=== PATIENT | female | born 1950 | race African-American/Black ===

== ENCOUNTER → 2018-07-21 10:52 | Outpatient (CLI) | payer MEDICARE, SELFPAY ==
[2018-07-20 14:50] VITALS: BMI 14.6
[2018-07-21 13:00] LABS: Erythrocyte Sedimentation Rate 13 mm/hr (0-30)
[2018-07-21 13:20] LABS: Alkaline Phosphatase 52 U/L (45-117)
== END ==
PROVIDERS: Family Provider Family Medicine Geriatric Medicine; PCP Family Medicine; Visit Provider Family Medicine
DX: M19.90 Unspecified osteoarthritis, unspecified site (principal); M89.8X9 Other specified disorders of bone, unspecified site
CPT/HCPCS: 36415; 84075; 85652

== ENCOUNTER → 2018-08-25 12:51 | Outpatient (CLI) | payer MEDICARE, MEDICAID, SELFPAY ==
[2018-08-16 14:25] VITALS: BMI 14.6
--- NOTE | 2018-08-25 13:02 | MRI_ITS ---
STUDY: MRI LUMBAR SPINE WITHOUT CONTRAST REASON FOR EXAM: Female, 68 years old. Low back pain and radiculopathy TECHNIQUE: Standardized fat and water weighted pulse sequences were obtained in the sagittal and axial planes. COMPARISON: Lumbosacral x-ray 09/27/2012 FINDINGS: T12-L1: Normal endplates. Normal disc height, hydration and morphology. Normal bilateral facet joints. Normal central canal and bilateral lateral recesses. Normal bilateral intervertebral neural foramina. There is straightening of the normal lumbar lordosis. There is a dextroscoliosis of the lumbar spine. Normal conus medullaris that terminates at the L1-L2 level L1-2: Normal endplates. Normal disc height, hydration and morphology. Normal bilateral facet joints. Normal central canal and bilateral lateral recesses. Normal bilateral intervertebral neural foramina. L2-3: Normal endplates. There is mild annular disc bulge and mild ligamentum flavum hypertrophy. Normal bilateral facet joints. Normal central canal and bilateral lateral recesses. Normal bilateral intervertebral neural foramina. L3-4: Normal endplates. There is marked annular disc bulge and central disc protrusion. There is ligamentum flavum hypertrophy and mild to moderate bilateral facet arthrosis.. Marked central canal narrowing. Mild right and moderate left foraminal narrowing. L4-5: Normal endplates. Mild annular disc bulge, ligamentum flavum hypertrophy and bilateral facet arthrosis. No central canal narrowing. Mild right foraminal narrowing. L5-S1: Normal endplates. Normal disc height, hydration and morphology. Normal bilateral facet joints. Normal central canal and bilateral lateral recesses. Normal bilateral intervertebral neural foramina. Normal visualized sacral ala. Normal visualized paraspinous soft tissue structures. MRI/Spine Lumbar (Routine) IMPRESSION: There is multilevel degenerative disc disease most prominent at L3-L4 as described above. There is straightening of the lumbar lordosis. Electronically Signed: Christina Richards, at 16:51 EDT Tel , Service support ,
== END ==
PROVIDERS: Family Provider Family Medicine; PCP Family Medicine; Referring Provider Family Medicine; Visit Provider Family Medicine
DX: M48.061 Spinal stenosis, lumbar region without neurogenic claudication (principal)
CPT/HCPCS: 72148

== ENCOUNTER → 2019-10-02 09:04 | Outpatient (CLI) | payer MEDICARE, SELFPAY ==
[2019-10-02 08:48] VITALS: BMI 15.1
[2019-10-02 12:48] LABS: Absolute Lymphocyte Count 0.97 X10^3/uL (0.83-4.51); Absolute Neutrophil Count 2.1 X10^3/uL (2.0-7.7); Basophil# 0.05 X10^3/uL; Basophil% 1.3 % (0-1); Eosinophil# 0.13 X10^3/uL; Eosinophils% 3.4 % (0-5); Hematocrit 40.1 % (37-47); Hemoglobin 12.3 g/dL (12.0-15.0); Lymphocyte # 0.97 X10^3/ul (4.0); Lymphocyte % 25.1 % (19-41); Mean Corp Hgb Conc 30.7 g/dL (32-36); Mean Corpuscular Hgb 31.1 pg (27.0-32.0); Mean Corpuscular Volume 101.5 fL (81-99); Mean Platelet Vol. 11.8 fl (6.2-12.0); Monocyte# 0.56 X10^3/uL; Monocyte% 14.5 % (0-10); NRBC Flagged by Analyzer 0 % (0-5); Neutrophil # 2.14 X10^3/uL (2.7-7.7); Neutrophil % 55.4 % (47-70); Platelet Count 321 K/mm3 (150-450); RBC Distribution Width CV 13.4 % (11.6-14.6); RBC Distribution Width SD 50.2 fl (35.1-43.9); Red Blood Count 3.95 M/mm3 (4.2-5.4); White Blood Count 3.9 K/mm3 (4.4-11.0)
[2019-10-02 13:06] LABS: AST(SGOT) 18 U/L (15-37); Alanine Aminotransfer ALT/SGPT 20 U/L (13-56); Albumin, Serum 3.8 g/dL (3.2-5.0); Alkaline Phosphatase 61 U/L (45-117); Anion Gap 5 (5-15); BUN 15 mg/dL (7-18); BUN/Creat Ratio 18.1 RATIO (10-20); Calcium,Total 9.4 mg/dL (8.5-10.1); Chloride 109 mmol/L (98-107); Cholesterol 215 mg/dL (200); Creatinine, Serum 0.83 mg/dL (0.55-1.02); EST Glomerular Filtration Rate 73 mL/min (>60); Est Glom Filt Rate - Afr Amer 88 mL/min (>60); Glucose 86 mg/dL (74-106); High Density Lipoprotein 88 mg/dL; Potassium 3.7 mmol/L (3.5-5.1); Protein, Total 7.8 g/dL (6.4-8.2); Sodium Level 141 mmol/L (136-145); Triglycerides 54 mg/dL; Very Low Density Lipoprotein 11 mg/dL (5-40)
== END ==
PROVIDERS: PCP Family Medicine; Referring Provider Internal Medicine; Visit Provider Internal Medicine
DX: I10 Essential (primary) hypertension (principal)
CPT/HCPCS: 36415; 80053; 80061; 85025

== ENCOUNTER 2020-09-11 22:20 | Emergency (ER) | payer MEDICARE, MEDICAID, SELFPAY ==
[2020-09-10 15:28] VITALS: BMI 15.1
[2020-09-11 22:21] VITALS: BP 157/81; PULSE 60; RESP 16; TEMP 36.2; O2SAT 98; BMI 13.4
--- NOTE | 2020-09-11 22:39 | US_ITS ---
HISTORY: ABD PAIN TECHNIQUE: Joy scale and color doppler imaging was performed of the pancreas, liver, and gallbladder. COMPARISON: None FINDINGS: # of images incl. paperwork: 132 LIVER: --Echotexture: There is normal echotexture. --Parenchyma: No focal lesions.. No intrahepatic biliary ductal dilation Liver Measures 13 cm. CBD: 2 mm GALLBLADDER: wall 1.4 mm. No stones or sludge .No sonographic Jensen's sign PANCREAS: Imaged portion shows no acute abnormality. RIGHT KIDNEY: 8.7 cm. Mild prominence of the renal pelvis and calyces. IVC: Not abnomally dilated in the imaged portion Aorta: Not well demonstrated. Ascites: None. US/Gallbladder IMPRESSION: Mild right hydronephrosis without demonstration of etiology. Obstructing distal calculus or other lesion not excluded. - at 2354 Reported and signed by: Jordan Collier MD Electronically Signed: Jordan Collier MD at 23:52 EDT Tel , Service support ,
--- NOTE | 2020-09-11 22:40 | EX.ED.DYSGE1 ---
HPI History of Present Illness Chief Complaint: Abd Pain Narrative Narrative: supper. She complains of nausea and vomiting as well. Denies constipation or diarrhea.70-year-old female presenting with epigastric and right upper quadrant pain. This started earlier this evening after she was eating a a sub. She states that after a couple of bites she started having pain and nausea. She denies a fever. She was otherwise well prior to this. She denies surgical history in her abdomen. [facility] Medical History History of breast cancer Osteoporosis Seasonal allergies Home Medications science anti-aging formula PO 07/20/18 [History Last Taken Unknown] ketoconazole 2 % topical cream TOPICAL 03/20/19 [History Last Taken Unknown] ibuprofen 600 mg tablet See Rx Instructions .ROUTE .COMPLEX #90 tab 09/12/19 [Rx Last Taken Unknown] bone health 1 tab PO DAILY 10/02/19 [History Last Taken Unknown] food supplemt, lactose-reduced 1 ea PO DAILY 90 Days #5688 ml 10/26/19 [Rx Last Taken Unknown] lidocaine 5 % topical patch 1 patch TOPICAL DAILY #30 ea 04/09/20 [Rx Last Taken Unknown] oxybutynin chloride 15 mg tablet,extended release 24 hr 15 mg PO DAILY #90 tab 04/09/20 [Rx Last Taken Unknown] Allergy/AdvReac Type Severity Reaction Status Date / Time codeine Allergy Severe Hives Verified 09/11/20 22:23 Penicillins Allergy Severe Hives Verified 09/11/20 22:23 acetaminophen [From Vicodin] Allergy Intermediate Hives Verified 09/11/20 22:23 hydrocodone [From Vicodin] Allergy Intermediate Hives Verified 09/11/20 22:23 Family History Other Cancer Diabetes Heart disease Hyperlipemia Kidney disease Thyroid disorder Surgical History History of breast biopsy History of breast reconstruction History of left mastectomy Social History Smoking Status: Never smoker alcohol intake: never substance use type: does not use ROS ROS ED Constitutional Constitutional ED: Denies chills, fever(s) or sweats Eyes Eyes: Denies blurry vision or change in vision ENT ENT ED: Denies ear pain, rhinorrhea or sore throat Cardiovascular Cardiovascular: Denies chest pain, palpitations or racing heartbeat Respiratory/Chest Respiratory/Chest: Denies cough, dyspnea or sputum Gastrointestinal Gastrointestinal: Reports abdominal pain, nausea and vomiting; Denies constipation or diarrhea Genitourinary Genitourinary ED: Denies dysuria, hematuria or urinary frequency Musculoskeletal Musculoskeletal: Denies arthralgias, myalgias or neck pain Integumentary Denies abscess, Abrasions or rash Neurologic Neurologic: Denies headache(s), paresthesias or weakness Psychiatric Psychiatric: Denies anxiety, depression, suicidal ideation or suicidal thoughts Endocrine Endocrinology: Denies polydipsia or polyuria EXAM Physical Exam Const Vital Signs: 09/11/20 22:21 Temperature 97.2 F L Temperature Source Temporal Pulse Rate 60 Respiratory Rate 16 Blood Pressure 157/81 H Blood Pressure Mean 106 Pulse Ox 98 Oxygen Delivery Method Room Air Positive well nourished General Appearance ED: NAD; Negative for pallor HEENT Reports normocephalic, head/scalp atraumatic and moist mucous membranes Negative for trauma Eyes PERRL and EOMs intact bilaterally General Eye ED: Negative for pale conjunctiva or scleral icterus Neck no lymphadenopathy and supple Chest Wall inspection of chest normal and palpation of chest normal Resp Auscultation: Negative for rales, rhonchi or wheezes Cardio regular rate and regular rhythm GI GI Narrative: Tenderness to palpation in the epigastrium and right upper quadrant. Narrative: Deferred Extremity normal to inspection General Extremety ED: Yes edema and tenderness General Extremity: edema Neuro oriented x3 and CN's II-XII intact bilaterally Sensorium / Orientation: alert Motor Exam: strength 5/5 throughout Psych mental status grossly normal Attitude: No agitated Skin no rashes or lesions noted and no wounds General Skin Exam: Negative for jaundice or pallor MDM MDM MDM Narrative Medical decision making narrative: Patient seen and evaluated for abdominal pain. Initially she had right upper quadrant and epigastric pain. I obtained lab work and a right upper quadrant ultrasound which showed the gallbladder was normal. On reevaluation she started saying that her abdominal pain had moved to her lower abdomen around her right lower quadrant and umbilicus. I obtained a urinalysis which showed that she had blood in her urine. Otherwise her lab work is normal. For this reason I obtained a CT abdomen pelvis without contrast looking for kidney stone however none was found. She does has isolated hydronephrosis but this is no longer where her pain is. CT does identify a very large amount of stool. Patient states that she had a bowel movement earlier today and even had 1 in the emergency room. I think this is likely the cause of her pain. I gave her magnesium citrate to take home. I counseled her to take one half bottle and if she does not have a bowel movement for hours to take the other half. Patient was amenable to this plan. Impression: 1. Abdominal pain 2. Hematuria 3. Constipation Lab Data Labs: Laboratory Results - last 24 hr 09/11/20 09/11/20 09/12/20 22:46 22:46 00:20 WBC 5.2 RBC 4.04 L Hgb 12.4 Hct 38.9 MCV 96.3 MCH 30.7 MCHC 31.9 L RDW Std Deviation 46.7 H RDW Coeff of Nancy 13.1 Plt Count 301 MPV 10.0 Immature Gran % (Auto) 1.000 H Neut % (Auto) 72.2 H Lymph % (Auto) 17.2 L Turner % (Auto) 8.0 Eos % (Auto) 0.6 Baso % (Auto) 1.0 Absolute Neuts (auto) 3.8 Absolute Lymphs (auto) 0.90 Nucleated RBC % 0 Sodium 140 Potassium 3.7 Chloride 105 Carbon Dioxide 29.0 Anion Gap 6 BUN 14 Creatinine 0.90 Estim Creat Clear Calc 33.41 Est GFR (MDRD) Af Amer 79 Est GFR (MDRD) Non-Af 66 BUN/Creatinine Ratio 15.5 Glucose 189 H Calcium 9.4 Total Bilirubin 0.70 AST 15 ALT 16 Alkaline Phosphatase 71 Total Protein 7.6 Albumin 3.9 Globulin 3.7 Albumin/Globulin Ratio 1.1 Lipase 149 Urine Color Yellow Urine Clarity Clear Urine pH 8.0 Ur Specific [place] 1.015 Urine Protein 15 H Urine Glucose (UA) 100 H Urine Ketones Negative Urine Occult Blood 50 H Urine Nitrite Negative Urine Bilirubin Negative Urine Urobilinogen Normal Ur Leukocyte Esterase Negative Urine RBC 0-5 SEEN Urine WBC 0 SEEN Ur Squamous Epith Cells 0 SEEN Amorphous Sediment RARE Urine Bacteria RARE Urine Mucus 0 SEEN Radiography Diagnostic Testing: Radiology Impression Gallbladder Ultrasound 09/11/20 22:39 IMPRESSION: Mild right hydronephrosis without demonstration of etiology. Obstructing distal calculus or other lesion not excluded. - at 2354 Reported and signed by: Jordan Collier MD Electronically Signed: Jordan Collier MD at 23:52 EDT Tel , Service support , Abdomen/Pelvis CT 09/12/20 00:28 IMPRESSION: 1. Large amount of stool suggesting constipation and fecal stasis. 2. Mild right-sided hydronephrosis without obvious hydroureter or radiopaque ureteral calculus may be the result of recently passed calculus or infection. Electronically Signed: Kristal Hyatt MD at 0:53 EDT , Service support , Discharge Plan Triage Chief Complaint: Abd Pain ED Provider: Jeffrey Snow Dx/Rx/DC Orders Instructions: ED Abdominal Pain Unkn Cause Fem, ED Constipation (Adult) Prescriptions: No Action science anti-aging formula PO RF: 0 ketoconazole 2 % cream TOPICAL RF: 0 bone health 1 tab PO DAILY RF: 0 ibuprofen 600 mg tablet See Rx Instructions .ROUTE .COMPLEX Qty: 90 RF: 2 Ensure High Protein Liquid 1 ea PO DAILY 90 Days Qty: 5688 RF: 3 lidocaine [Lidoderm] 5 % adhesive patch,medicated 1 patch TOPICAL DAILY Qty: 30 RF: 1 oxybutynin chloride 15 mg tablet extended release 24hr 15 mg PO DAILY Qty: 90 RF: 1 Primary Care Provider: El Zheng Referrals: El Zheng, DO [Primary Care Provider] - Disposition Disposition: Home, self care
[2020-09-11] MEDS: 0.9% Normal Saline 1,000 ML 1000 ML IV (22:55)
[2020-09-11] MEDS: Ondansetron 4 MG/2 ML Vial IV (22:55)
[2020-09-11 23:09] LABS: ALB/GLOB Ratio 1.1 RATIO (0.9-2.4); AST(SGOT) 15 U/L (15-37); Alanine Aminotransfer ALT/SGPT 16 U/L (13-56); Albumin, Serum 3.9 g/dL (3.2-5.0); Alkaline Phosphatase 71 U/L (45-117); Anion Gap 6 (5-15); BUN 14 mg/dL (7-18); BUN/Creat Ratio 15.5 RATIO (10-20); Calcium,Total 9.4 mg/dL (8.5-10.1); Chloride 105 mmol/L (98-107); EST Glomerular Filtration Rate 66 mL/min (>60); Est Glom Filt Rate - Afr Amer 79 mL/min (>60); Estimated Creatinine Clearance 33.41 ml/min; Globulin 3.7 g/dL (2.2-4.2); Glucose 189 mg/dL (74-106); Lipase 149 U/L (73-393); Potassium 3.7 mmol/L (3.5-5.1); Protein, Total 7.6 g/dL (6.4-8.2); Sodium Level 140 mmol/L (136-145)
[2020-09-11 23:11] LABS: Absolute Neutrophil Count 3.8 X10^3/uL (2.0-7.7); Basophil# 0.05 X10^3/uL; Eosinophil# 0.03 X10^3/uL; Eosinophils% 0.6 % (0-5); Hematocrit 38.9 % (37-47); Hemoglobin 12.4 g/dL (12.0-15.0); Lymphocyte % 17.2 % (19-41); Mean Corp Hgb Conc 31.9 g/dL (32-36); Mean Corpuscular Hgb 30.7 pg (27.0-32.0); Mean Corpuscular Volume 96.3 fL (81-99); Monocyte# 0.42 X10^3/uL; NRBC Flagged by Analyzer 0 % (0-5); Neutrophil # 3.78 X10^3/uL (2.7-7.7); Neutrophil % 72.2 % (47-70); Platelet Count 301 K/mm3 (150-450); RBC Distribution Width CV 13.1 % (11.6-14.6); RBC Distribution Width SD 46.7 fl (35.1-43.9); Red Blood Count 4.04 M/mm3 (4.2-5.4); White Blood Count 5.2 K/mm3 (4.4-11.0)
[2020-09-12 00:24] LABS: Mucous, Urine 0 SEEN /hpf (<or=2+); Squamous Epithelial Cells - UA 0 SEEN /hpf (5-10); White Blood Cells 0 SEEN /hpf (0-5)
[2020-09-12 00:25] LABS: Color, Urine Yellow (Yellow); Glucose, Dipstick 100 mg/dl (Normal); Ketone-Dipstick Negative (Negative); Leukocyte Esterase-Dipstick Negative /ul (Negative); Nitrite-Dipstick Negative (Negative); Occult Blood-Urine 50 /ul (Negative); Protein-Dipstick 15 mg/dl (Negative); Specific Gravity, Urine 1.015 (1.002-1.030); Urine Bilirubin Dipstick Negative (Negative); Urine Clarity Clear (Clear); Urine Urobilinogen Normal (Normal)
--- NOTE | 2020-09-12 00:28 | CT_ITS ---
STUDY: CT ABDOMEN AND PELVIS WITHOUT CONTRAST REASON FOR EXAM: Female, 70 years old patient with right-sided flank pain. RADIATION DOSAGE (If Supplied By Facility): CTDIvol = ( 6.04 ) mGy, DLP = ( 240.06 ) mGycm TECHNIQUE: Transaxial images were obtained from the dome of the diaphragm to the symphysis pubis without oral contrast, and without intravenous contrast. Sagittal and coronal images were reconstructed. Individualized dose optimization techniques were used for this CT. COMPARISON: Prior comparison studies are not available for review at this time. FINDINGS: The visualized lung bases are unremarkable. The visualized portions of the heart are within normal limits. Normal liver. Normal gallbladder and extrahepatic biliary system. Normal spleen. Normal pancreas. Normal bilateral adrenal glands. There is mild right-sided hydronephrosis without obvious hydroureter or radiopaque ureteral calculus. This may be secondary to recently passed ureteral calculus, urinary tract infections or radiolucent calculus. Normal left kidney. Normal visualized stomach. Normal small intestine. There is a large amount of stool visible throughout the colon suggesting fecal stasis and constipation. The appendix is visualized and appears normal. There is mild atherosclerotic calcification of the abdominal aorta with elongation and tortuosity, but without a demonstrated aneurysm. There is venous distention of the inferior vena cava (IVC). Normal retroperitoneum. Normal urinary bladder. Normal abdominal wall. Normal osseous structures. CT/Abdomen/Pelvis without Cont IMPRESSION: 1. Large amount of stool suggesting constipation and fecal stasis. 2. Mild right-sided hydronephrosis without obvious hydroureter or radiopaque ureteral calculus may be the result of recently passed calculus or infection. Electronically Signed: Kristal Hyatt MD at 0:53 EDT , Service support ,
[2020-09-12 00:31] LABS: Bacteria RARE /hpf (None Seen); Red Blood Cells-Urine 0-5 SEEN /hpf (0-5)
[2020-09-12 00:32] LABS: Amorphous Sediment RARE
[2020-09-12] MEDS: Morphine 2 MG/ML Syringe IV (00:45)
[2020-09-12] MEDS: Magnesium Citrate 300 ML PO (01:06)
== END 2020-09-12 01:07 | disposition home or self-care (01) ==
PROVIDERS: Emergency Provider Student in an Organized Health Care Education/Training Program; PCP Family Medicine
DX: R10.11 Right upper quadrant pain (principal); R10.13 Epigastric pain; N13.30 Unspecified hydronephrosis; R31.9 Hematuria, unspecified; K59.00 Constipation, unspecified; M81.0 Age-related osteoporosis without current pathological fracture; Z79.1 Long term (current) use of non-steroidal anti-inflammatories (NSAID); Z85.3 Personal history of malignant neoplasm of breast; Z90.12 Acquired absence of left breast and nipple
CPT/HCPCS: 74176; 76705; 80053; 81001; 83690; 85025; 96361; 96374; 96375; 99282; J7030; A4216; J2405

== ENCOUNTER → 2020-10-02 15:31 | Outpatient (CLI) | payer MEDICARE, SELFPAY ==
[2020-09-16 13:22] VITALS: BMI 13.4
--- NOTE | 2020-10-02 15:33 | BI_ITS ---
MAMMOGRAPHY - UNILATERAL SCREENING: RIGHT BREAST REASON FOR EXAM: Female, 70 years old. Routine annual screening examination (unilateral). PERTINENT HISTORY: Personal history of breast cancer. Prior left mastectomy. TECHNIQUE: Digital unilateral breast kath (3D mammographic acquisition) in the CC and MLO projections. 2-D mediolateral oblique (MLO) and craniocaudad (CC) views of both breasts were obtained. CAD: Full Field Digital Mammography with Computer Added Detection was performed. COMPARISON: Comparison is made with prior outside examination dated 10/17/2019. FINDINGS: Breast Composition: The breasts are extremely dense, which lowers the sensitivity of mammography. There are no dominant masses or suspicious calcifications. No other significant abnormalities are identified. There has been no significant change since the prior study. BI/SCREEN MAMM (CAD) W/KATH UNI R IMPRESSION: Stable unilateral screening mammogram. Yearly follow-up mammogram recommended. (A) ASSESSMENT CATEGORY: BIRADS Category 1: Negative. A letter regarding these results will be sent to the patient by the facility within 30 days. Approximately 10% of breast cancers are not detected by mammography. A normal mammogram should not delay biopsy of a clinically suspicious abnormality. [id number] Electronically Signed: Noel Stovall MD at 8:09 EDT , Service support ,
== END ==
PROVIDERS: PCP Family Medicine; Referring Provider Family Medicine; Visit Provider Family Medicine
DX: Z12.31 Encounter for screening mammogram for malignant neoplasm of breast (principal)
CPT/HCPCS: 77063; 77067

== ENCOUNTER → 2020-11-07 13:36 | Outpatient (CLI) | payer MEDICARE, MEDICAID, SELFPAY ==
[2020-09-16 13:22] VITALS: BMI 13.4
--- NOTE | 2020-11-07 13:40 | CT_ITS ---
STUDY: CT ABDOMEN AND PELVIS WITH AND WITHOUT CONTRAST REASON FOR EXAM: Female, 70 years old. HYDRONEPHROSIS RADIATION DOSAGE (If Supplied By Facility): CTDIvol = ( 6.55 ) mGy, DLP = ( 803.40 ) mGycm TECHNIQUE: Transaxial images were obtained from the dome of the diaphragm to the symphysis pubis without oral contrast. IV 75ML ISOVUE 370 was administered. Sagittal and coronal images were reconstructed. Individualized dose optimization techniques were used for this CT. COMPARISON: Comparison is made with prior study dated 09/12/2020. FINDINGS: The visualized lung bases are unremarkable. The visualized portions of the heart are within normal limits. There is decreased attenuation of the liver consistent with steatosis. Normal gallbladder and extrahepatic biliary system. Normal spleen. Normal pancreas. Normal bilateral adrenal glands. Normal right kidney. Normal left kidney. Normal visualized stomach. Normal small intestine. Large amount of fecal material is seen in the colon. The appendix is visualized and appears normal. There is diffuse atherosclerotic calcification of the abdominal aorta, without a demonstrated aneurysm. Normal inferior vena cava. Normal retroperitoneum. Normal urinary bladder. There is absence of the uterus consistent with a prior hysterectomy. Normal abdominal wall. There are degenerative changes of the visualized lumbar spine. Loss of the normal lumbar lordosis. CT/CT Abd/Pelvis W/WO Contrast IMPRESSION: Large amount of fecal material is seen throughout the colon. There is no evidence of hydronephrosis. Electronically Signed: Noel Stovall MD at 15:27 EDT , Service support ,
[2020-11-07 14:05] LABS: EGFR FINGERSTICK > 60.0000 mL/min (>60)
== END ==
PROVIDERS: PCP Family Medicine; Referring Provider Urology; Visit Provider Urology
DX: N13.30 Unspecified hydronephrosis (principal); R10.9 Unspecified abdominal pain
CPT/HCPCS: 74178; Q9967

== ENCOUNTER → 2021-10-09 | Outpatient (CLI) | payer MEDICARE, MEDICAID, SELFPAY | END | disposition home or self-care (01) | LOC: LABSPEC 15:44 | PROVIDERS: PCP Family Medicine; Referring Provider Physician Assistant; Visit Provider Physician Assistant | DX: U07.1 COVID-19 (principal); J02.9 Acute pharyngitis, unspecified | CPT/HCPCS: 87635; U0003; U0005 ==

== ENCOUNTER 2022-01-29 18:11 | Emergency (ER) | payer MEDICARE, MEDICAID, SELFPAY ==
[2022-01-29 18:12] VITALS: BP 148/99; PULSE 86; RESP 14; TEMP 36.8; O2SAT 93; BMI 14.3
--- NOTE | 2022-01-29 19:43 | CT_ITS ---
STUDY: CT BRAIN WITHOUT CONTRAST REASON FOR EXAM: Female, 72 years old. Hit head on back of a couple of days ago. It feels like its trickling. I think blood is running on the inside of my brain RADIATION DOSAGE (If Supplied By Facility): CTDIvol = ( 44.99 ) mGy, DLP = ( 745.49 ) mGycm TECHNIQUE: Transaxial CT imaging of the brain was performed without administration of intravenous contrast material. Individualized dose optimization techniques were used for this CT. COMPARISON: No relevant priors. FINDINGS: Normal soft tissue structures. Normal calvarium. Normal size ventricles and extra-axial spaces for the patient''s age. Normal white matter tracts of the cerebral hemispheres. For Normal brainstem. Normal cerebellum. There is no intracranial hemorrhage. There are no findings of an acute ischemic infarction. Normal visualized paranasal sinuses. CT/Brain/Head without Contrast IMPRESSION: No acute intracranial or calvarial abnormality. Electronically Signed: Dillan Hernandez DO at 20:15 EDT ,
--- NOTE | 2022-01-29 19:43 | EDS_ITS ---
HPI History of Present Illness Chief Complaint: Head Injury Detail of Chief Complaint: Head injury Informant: patient Narrative Narrative: Patient presents the emergency department after head injury. Patient states that yesterday she was cleaning her tub when she bumped her head on the tub. No loss of consciousness. Patient last evening started feeling like there was blood dripping on the inside of her brain. Patient states that symptoms kind of resolved but then today when she bent over she had the same sensation again and so she comes in for evaluation. She denies nausea or vomiting. She is not on any blood thinners. Otherwise has not been ill. [facility] Medical History (Updated 01/29/22 @ 21:[address] Emily Tobias, DO) History of breast cancer Osteoporosis Seasonal allergies Home Medications science anti-aging formula PO 07/20/18 [History Last Taken Unknown] bone health 1 tab PO DAILY 10/02/19 [History Last Taken Unknown] food supplemt, lactose-reduced (Ensure High Protein oral liquid) 1 ea PO DAILY 3 months #5,688 mL 10/26/19 [Rx Last Taken Unknown] ketoconazole 2 % topical cream 1 applic topical DAILY #60 grams 07/24/21 [Rx Last Taken Unknown] lidocaine 5 % topical patch (Lidoderm) 1 patch topical DAILY #90 ea 07/24/21 [Rx Last Taken Unknown] benzonatate 100 mg capsule 100 mg PO TID PRN cough #30 caps 10/09/21 [Rx Last Taken Unknown] ibuprofen 600 mg tablet 600 mg PO Q6H #90 tabs 10/09/21 [Rx Last Taken Unknown] oxybutynin chloride 15 mg tablet,extended release 24 hr 15 mg PO DAILY #90 tabs 10/09/21 [Rx Last Taken Unknown] oxybutynin chloride 5 mg tablet,extended release 24 hr 5 mg PO DAILY #90 tabs 10/09/21 [Rx Last Taken Unknown] Allergy/AdvReac Type Severity Reaction Status Date / Time codeine Allergy Severe Hives Verified 01/29/22 18:12 Penicillins Allergy Severe Hives Verified 01/29/22 18:12 acetaminophen [From Vicodin] Allergy Intermediate Hives Verified 01/29/22 18:12 hydrocodone [From Vicodin] Allergy Intermediate Hives Verified 01/29/22 18:12 Family History Other Cancer Diabetes Heart disease Hyperlipemia Kidney disease Thyroid disorder Surgical History History of breast biopsy History of breast reconstruction History of left mastectomy Social History Smoking Status: Never smoker alcohol intake: never substance use type: does not use ROS ROS ED Review of Systems ROS Unobtainable: other Constitutional Constitutional ED: Reports lethargy; Denies chills, fever(s), sweats or weight loss Eyes Eyes: Denies blurry vision, change in vision or diplopia ENT ENT ED: Denies rhinorrhea or sore throat Cardiovascular Cardiovascular: Denies chest pain, orthopnea or racing heartbeat Respiratory/Chest Respiratory/Chest: Denies cough, dyspnea, dyspnea on exertion, orthopnea or sputum Gastrointestinal Gastrointestinal: Denies abdominal pain, diarrhea, nausea or vomiting Genitourinary Genitourinary ED: Denies dysuria, hematuria or urinary frequency Musculoskeletal Musculoskeletal: Denies arthralgias, back pain, myalgias or neck pain Integumentary Denies abscess, Abrasions or rash Neurologic Neurologic: Denies headache(s) or weakness Psychiatric Psychiatric: Denies anxiety, depression or suicidal thoughts Endocrine Endocrinology: Denies polydipsia, polyphagia or polyuria Hematologic/Lymphatic Hematologic/Lymphatic: Denies easy bleeding, easy bruising or lymphadenopathy Allergic/Immunologic Allergic/Immunologic ED: Denies mouth swelling, tongue swelling or urticaria EXAM Physical Exam Const Vital Signs: 01/29/22 18:12 01/29/22 19:38 Temperature 98.2 F Temperature Source Temporal Pulse Rate 86 Respiratory Rate 14 Respiratory Effort Normal Non-Labored Respiratory Depth Normal Respiratory Pattern Normal Blood Pressure 148/99 H Blood Pressure Mean 115 Pulse Ox 93 Oxygen Delivery Method Room Air Room Air Positive well nourished and well developed General Appearance ED: well developed and NAD HEENT Reports TM's clear and moist mucous membranes normocephalic and atraumatic; Negative for trauma or tenderness Tympanic Membrane ED: Yes TM's clear Eyes PERRL and EOMs intact bilaterally General Eye ED: Negative for pale conjunctiva or scleral icterus Neck no lymphadenopathy, supple and no JVD General: Negative for tenderness Chest Wall inspection of chest normal and palpation of chest normal Chest: Negative for tenderness Resp normal respiratory effort and clear to auscultation bilaterally Effort and Inspection: Negative for respiratory distress or pain with movement Auscultation: Negative for rhonchi, wheezes or diminished lung sounds Cardio regular rate, regular rhythm, S1 normal heart sound, S2 normal heart sound and no murmurs Peripheral Pulses: pulses 2+ throughout GI normal to inspection, nondistended, normoactive bowel sounds, soft to palpation, non-tender, non-distended and no masses Back/Spine no CVA tenderness and no thoracic nor lumbar tenderness Extremity normal to inspection General Extremety ED: Negative for edema General Extremity: Negative for edema Neuro oriented x3, CN's II-XII intact bilaterally, no sensory deficits noted and gait normal Sensorium / Orientation: awake, alert, oriented to person, oriented to place and oriented to time Motor Exam: strength 5/5 throughout and strength abnormal Psych mental status grossly normal Skin no rashes or lesions noted and no wounds MDM MDM MDM Narrative Medical decision making narrative: CT scan of the brain without contrast obtained was normal. At this point patient will be discharged to home. She is advised to use Tylenol for any discomfort. She is to follow-up with her primary care physician within next 3 to 5 days. Radiography Diagnostic Testing: Clinical Impression(s) from Imaging Studies Brain CT 01/29/22 19:43 IMPRESSION: No acute intracranial or calvarial abnormality. Electronically Signed: Dillan Hernandez DO at 20:15 EDT Reading Location ID and State: [address] [place] [address] Tel [phone], Service support , Discharge Plan Triage Chief Complaint: Head Injury ED Provider: Emily Tobias Dx/Rx/DC Orders Clinical Impression: Closed head injury Instructions: ED Head Injury (Adult) Prescriptions: No Action science anti-aging formula PO bone health 1 tab PO DAILY lidocaine [Lidoderm] 5 % adhesive patch,medicated 1 patch TOPICAL DAILY Qty: 90 1RF Rx Instructions: leave on most painful area for up to 12 hrs ketoconazole 2 % cream 1 applic TOPICAL DAILY Qty: 60 2RF ibuprofen 600 mg tablet 600 mg PO Q6H Qty: 90 2RF oxybutynin chloride 15 mg tablet extended release 24hr 15 mg PO DAILY Qty: 90 1RF oxybutynin chloride 5 mg tablet extended release 24hr 5 mg PO DAILY Qty: 90 1RF benzonatate 100 mg capsule 100 mg PO TID PRN (Reason: cough) Qty: 30 1RF Ensure High Protein Liquid 1 ea PO DAILY 90 Days Qty: 5688 3RF Primary Care Provider: El Zheng Referrals: El Zheng, [Primary Care Provider] - 3-5 Days Disposition Disposition: Home, Self Care
[2022-01-29 21:30] VITALS: BP 135/73; PULSE 79; RESP 18; O2SAT 100
== END 2022-01-29 21:31 | disposition home or self-care (01) ==
PROVIDERS: Emergency Provider Emergency Medicine; PCP Family Medicine; Visit Provider Emergency Medicine
DX: S09.90XA Unspecified injury of head, initial encounter (principal); W22.09XA Striking against other stationary object, initial encounter; Y93.E9 Activity, other interior property and clothing maintenance; Y92.002 Bathroom of unspecified non-institutional (private) residence as the place of occurrence of the external cause
CPT/HCPCS: 70450; 99282

== ENCOUNTER → 2022-02-16 | Outpatient (CLI) | payer MEDICARE, MEDICAID, SELFPAY ==
[2022-02-16 16:00] LABS: Hemoglobin A1c 5.4 % (3.8-5.6)
[2022-02-16 16:04] LABS: Anion Gap 5 (5-15); BUN 15 mg/dL (7-18); BUN/Creat Ratio 17.3 RATIO (10-20); Calcium,Total 9.3 mg/dL (8.5-10.1); Chloride 106 mmol/L (98-107); Creatinine, Serum 0.86 mg/dL (0.55-1.02); EST Glomerular Filtration Rate 69 mL/min (>60); Est Glom Filt Rate - Afr Amer 83 mL/min (>60); Glucose 79 mg/dL (74-106); Potassium 3.5 mmol/L (3.5-5.1); Sodium Level 140 mmol/L (136-145)
== END | disposition home or self-care (01) ==
LOC: BIMLAB 14:26
PROVIDERS: PCP Family Medicine; Referring Provider Family Medicine; Visit Provider Family Medicine
DX: R73.09 Other abnormal glucose (principal)
CPT/HCPCS: 36415; 80048; 83036

== ENCOUNTER → 2022-09-24 | Outpatient (CLI) | payer MEDICARE, MEDICAID, SELFPAY ==
[2022-09-24 12:29] LABS: Absolute Lymphocyte Count 1.14 X10^3/uL (0.83-4.51); Absolute Neutrophil Count 2.5 X10^3/uL (2.0-7.7); Basophil# 0.05 X10^3/uL; Basophil% 1.2 % (0-1); Eosinophil# 0.08 X10^3/uL; Eosinophils% 1.9 % (0-5); Hemoglobin 12.3 g/dL (12.0-15.0); Lymphocyte # 1.14 X10^3/ul (0.83-4.51); Mean Corp Hgb Conc 30.8 g/dL (32-36); Mean Corpuscular Hgb 30.3 pg (27.0-32.0); Mean Corpuscular Volume 98.5 fL (81-99); Monocyte# 0.47 X10^3/uL; Monocyte% 11.1 % (0-10); NRBC Flagged by Analyzer 0 % (0-5); Neutrophil # 2.48 X10^3/uL (2.7-7.7); Neutrophil % 58.6 % (47-70); Platelet Count 333 K/mm3 (150-450); RBC Distribution Width SD 46.6 fl (35.1-43.9); Red Blood Count 4.06 M/mm3 (4.2-5.4); White Blood Count 4.2 K/mm3 (4.4-11.0)
[2022-09-24 13:09] LABS: Vitamin B12 520 pg/mL (211-911); Vitamin D,25 Hydroxy 47.4 ng/mL
[2022-09-24 13:22] LABS: ALB/GLOB Ratio 0.9 RATIO (0.9-2.4); AST(SGOT) 17 U/L (15-37); Alanine Aminotransfer ALT/SGPT 21 U/L (13-56); Albumin, Serum 3.7 g/dL (3.2-5.0); Alkaline Phosphatase 67 U/L (45-117); Anion Gap 7 (5-15); BUN 19 mg/dL (7-18); BUN/Creat Ratio 21.4 RATIO (10-20); Calcium,Total 9.8 mg/dL (8.5-10.1); Chloride 106 mmol/L (98-107); Cholesterol 225 mg/dL (200); Creatinine, Serum 0.89 mg/dL (0.55-1.02); EST Glomerular Filtration Rate 67 mL/min (>60); Est Glom Filt Rate - Afr Amer 81 mL/min (>60); Globulin 3.9 g/dL (2.2-4.2); Glucose 75 mg/dL (74-106); High Density Lipoprotein 97 mg/dL; Potassium 3.8 mmol/L (3.5-5.1); Protein, Total 7.6 g/dL (6.4-8.2); Sodium Level 138 mmol/L (136-145); Thyroid Stim Hormone (TSH) 0.41 uIU/mL (0.358-3.74); Triglycerides 34 mg/dL; Very Low Density Lipoprotein 7 mg/dL (5-40)
== END | disposition home or self-care (01) ==
LOC: BIMLAB 11:01
PROVIDERS: PCP Family Medicine; Referring Provider Internal Medicine; Visit Provider Internal Medicine
DX: R26.89 Other abnormalities of gait and mobility (principal); R29.898 Other symptoms and signs involving the musculoskeletal system; Z13.6 Encounter for screening for cardiovascular disorders; M81.0 Age-related osteoporosis without current pathological fracture; R20.0 Anesthesia of skin; R20.2 Paresthesia of skin
CPT/HCPCS: 36415; 80053; 80061; 82306; 82607; 84443; 85025

== ENCOUNTER 2022-10-28 09:12 | Outpatient (CLI) | payer MEDICARE, MEDICAID, SELFPAY ==
--- NOTE | 2022-10-28 09:15 | BI_ITS ---
MAMMOGRAPHY - UNILATERAL DIAGNOSTIC: Right BREAST REASON FOR EXAM: Female, 72 years old. Personal history of breast cancer. PERTINENT HISTORY: Personal history of breast cancer. Prior left mastectomy. TECHNIQUE: Digital unilateral breast mp (3D mammographic acquisition) in the CC and MLO projections. 2-D mediolateral oblique (MLO) and craniocaudad (CC) views of both breasts were obtained. CAD: Full Field Digital Mammography with Computer Added Detection was performed. COMPARISON: Comparison is made with prior examination dated October 02, 2020. FINDINGS: Breast Composition: The breasts are extremely dense, which lowers the sensitivity of mammography. There are no dominant masses or suspicious calcifications. No other significant abnormalities are identified. There has been no significant change since the prior study. BI/DIAG MAMM W/CAD, UNILAT IMPRESSION: Stable unilateral diagnostic mammogram. One year follow-up mammogram recommended. (A) ASSESSMENT CATEGORY: BIRADS Category 1: Negative. A letter regarding these results will be sent to the patient by the facility within 30 days. Approximately 10% of breast cancers are not detected by mammography. A normal mammogram should not delay biopsy of a clinically suspicious abnormality. Electronically Signed: Noel Stovall MD at 10:33 EDT ,
--- NOTE | 2022-10-28 09:55 | BD_ITS ---
STUDY: DUAL ENERGY X-RAY ABSORPTIOMETRY / DXA REASON FOR EXAM: Female, 72 years old. Osteoporosis TECHNIQUE: Bone Mineral Density (BMD) measurements of lumbar spine and bilateral hips were obtained. COMPARISON: Comparison is made with prior study November 10, 2010. FINDINGS: Lumbar Spine (L1-L4): g/cm2 (0.757) / T-score (-3.6) / Z-score (-1.2) Findings are suggestive of osteoporosis with a high fracture risk. Left Femur Total: g/cm2 (0.561) / T-score (-3.0) / Z-score (-1.9) Left Femoral Neck: g/cm2 (0.443) / T-score (-3.6) / Z-score (-2.1) Right Femur Total: g/cm2 (0.563) / T-score (-3.0) / Z-score (-1.8) Right Femoral Neck: g/cm2 (0.451) / T-score (-3.5) / Z-score (-2.1) The T-Scores on the most recent prior examination were: Lumbar Spine (L1-L4): There has been improvement of bone density since the previous examination. Left Femur Total: which represents a worsening of 12.3%. Right Femur Total: which represents a worsening of 10.0%. BD/Dexa Bone Density Study IMPRESSION: The patient is considered osteoporotic as outlined below according to World Praneeth Organization (WHO) criteria with a high fracture risk. There has been worsening of bone density since the previous examination. Reference Information: The T-score is the number of standard deviations above or below the standard which is normal for young adults at their peak bone mineral density. The World Health Organization (WHO) interprets the T-scores as follows: Above -1 Normal bone density Between -1 and -2.5 Osteopenia Equal to / or below -2.5 Osteoporosis As a practical clinical guideline, osteopenia may be graded as follows: Mild -1 through -1.5 Moderate -1.6 through -2.0 Severe -2.1 through -2.4 The Z-score is the number of standard deviations above or below age-matched controls. A Z-score of less than -1.5 would be considered abnormal. References: 1. NIH Osteoporosis and Related Bone Diseases www osteo.org 2. International Society for Clinical Densitometry www iscd.org 3. National Osteoporosis Foundation www nof.org Electronically Signed: Noel Stovall MD at 13:28 EDT ,
== END 2022-10-28 23:59 | disposition home or self-care (01) ==
LOC: OPBI 09:14
PROVIDERS: PCP Internal Medicine; Referring Provider Internal Medicine; Visit Provider Internal Medicine
DX: Z85.3 Personal history of malignant neoplasm of breast (principal); M81.0 Age-related osteoporosis without current pathological fracture
CPT/HCPCS: 77061; 77065; 77080; G0279

== ENCOUNTER → 2022-12-16 | Outpatient (CLI) | payer MEDICARE, MEDICAID, SELFPAY ==
[2022-12-16 10:30] LABS: Bacteria 0 SEEN /hpf (None Seen); Mucous, Urine 0 SEEN /hpf (<or=2+)
[2022-12-16 12:20] LABS: Color, Urine Yellow (Yellow); Glucose, Dipstick Normal (Normal); Ketone-Dipstick Negative (Negative); Leukocyte Esterase-Dipstick 25 /ul (Negative); Nitrite-Dipstick Negative (Negative); Occult Blood-Urine 25 /ul (Negative); Protein-Dipstick 15 mg/dl (Negative); Specific Gravity, Urine 1.015 (1.002-1.030); Urine Bilirubin Dipstick Negative (Negative); Urine Clarity Clear (Clear); Urine Urobilinogen Normal (Normal)
[2022-12-16 12:34] LABS: Amorphous Sediment 2+; Squamous Epithelial Cells - UA 5-10 SEEN /hpf (5-10); White Blood Cells 5-10 SEEN /hpf (0-5)
[2022-12-16 12:35] LABS: Red Blood Cells-Urine 0-5 SEEN /hpf (0-5)
== END | disposition home or self-care (01) ==
PROVIDERS: PCP Internal Medicine; Referring Provider Internal Medicine; Visit Provider Internal Medicine
DX: Z20.822 Contact with and (suspected) exposure to COVID-19 (principal)
CPT/HCPCS: 81001; 87635

== ENCOUNTER → 2023-02-19 | Outpatient (CLI) | payer MEDICARE, MEDICAID, SELFPAY ==
--- NOTE | 2023-02-19 08:02 | MRI_ITS ---
HISTORY: cognitive decline, memory issues. TECHNIQUE: Multiplanar and multisequence MR images of the brain were obtained without contrast. 274 images. COMPARISON: CT 01/29/2022. FINDINGS: BRAIN PARENCHYMA: Mild foci and small zones of increased T2 FLAIR signal in the bilateral periventricular white matter. No abnormal focus of restricted diffusion. No acute intracranial hemorrhage identified. CSF SPACES: Mild generalized volume loss. No significant midline shift or other mass effect.No extra-axial fluid collection. VASCULAR SYSTEM: Major intracranial flow voids are maintained. PARANASAL SINUSES AND MASTOID AIR CELLS: No significant air fluid levels. ORBITS: Right lens resection. MRI/Brain without Contrast IMPRESSION: Mild chronic involutional and white matter changes. No evidence for acute infarct. Electronically Signed: Morena Gonzalez MD at 11:36 EST ,
== END | disposition home or self-care (01) ==
PROVIDERS: PCP Internal Medicine; Referring Provider Internal Medicine; Visit Provider Internal Medicine
DX: R41.89 Other symptoms and signs involving cognitive functions and awareness (principal)
CPT/HCPCS: 70551

== ENCOUNTER → 2023-03-30 | Outpatient (CLI) | payer MEDICARE, MEDICAID, SELFPAY ==
--- OUTSIDE RECORDS SUMMARY | 2023-03-30 11:36 | XMS RPT_ITS | CCD ---
Author Name Unknown Address [address] [place] [address] Organization [facility] Clinical Note 10-17-2020 Note Date & Type Note Facility 10-17-2020 Note Patient Outreach (IN TMMN) STAS OLIVEIRA ([id number]) 1950 F Date Time Provider Department 10/17/20 CHELSI MA During your visit today, we recorded the following information about you: Allergies As of Date: 10/17/2020 Noted Allergy Reaction CODEINE 09/22/2009 11 - Vomiting PENICILLINS 05/17/2005 4 - Hives 9 - Itching SMOKE 09/23/2011 4 - Hives Comments: Cigarette smoke causes patient to break out and itch VICODIN (HYDROCODONE-ACETAMINOPHE*07/17/2009 4 - Hives 11 - Vomiting Date Reviewed: 10/17/2019 Reviewed by: María Elena Ramirez Ma - Fully Assessed Visit Diagnosis:Encounter for screening mammogram for breast cancer [Z12.31] Order(s):[facility] SCREENING [[id number]] Order #: [id number] FUTURE Prescriptions as of 10/20/2020 - ibuprofen (MOTRIN) 600 mg tablet Take 1 tablet by mouth every 6 hours as needed. FOR PAIN. - lidocaine (LIDODERM) 5 % Apply 1 Patch as directed every 24 hours. Remove patch after 12 hours. Location: back - alendronate (FOSAMAX) 70 mg tablet Take 1 tablet by mouth once each week. - oxybutynin ER (DITROPAN XL) 15 mg 24 hr Extended Rel Tab Take 1 tablet by mouth once daily. - tiZANidine HCl (ZANAFLEX) 2 mg capsule Take 1 capsule by mouth three times daily as needed. - lidocaine (LIDODERM) 5 % Apply 1 Patch as directed every 24 hours. Remove patch after 12 hours. Location: back - Cholecalciferol, Vitamin D3, 5,000 unit cap Take 1 capsule by mouth once daily. - mepivacaine (POLOCAINE) 1 % (10 mg/mL) injection one time only. - estradiol (ESTRACE) 0.01 % (0.1 mg/gram) vaginal cream Finger tip amount twice weekly - ketoconazole 2 % cream Apply to affected area(s) of rash on face selectively once to twice per day (qday to bid) as directed and tolerated. 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] 10/23/2009 Postop check [Z09] 11/12/2009 03/16/2017 Nocturia [R35.1] 01/22/2010 Frequency of micturition [R35.0] 01/22/2010 Malignant neoplasm of breast (female), unspecif*04/14/2010 03/26/2013 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 03/16/2017 Xerosis cutis [L85.3] 01/07/2011 03/16/2017 Screening for other and unspecified genitourina*01/21/2011 03/16/2017 Atrophic vaginitis [N95.2] 01/21/2011 Urethral stricture [N35.919] 01/21/2011 Abdominal pain, epigastric [R10.13] 05/24/2012 03/16/2017 Screening for malignant neoplasm of the rectum *05/24/2012 DCIS (ductal carcinoma in situ) of breast [D05.*03/26/2013 Osteoporosis [M81.0] 09/27/2013 Vitamin D deficiency [E55.9] 10/02/2014 Primary osteoarthritis of right hand [M19.041] 03/31/2015 Pain of finger of right hand [M79.644] 03/31/2015 Anxiety neurosis [F41.1] 09/25/2015 Underweight [R63.6] 09/25/2015 Encounter Status:Closed by [employer], PRODUSER on 10/20/20 [facility] Summary Purpose Family History No Family History Records Found Advance Directives No Advanced Directives Records Found Additional Source Comments INFORMATION SOURCE (unrecogn ized section and content) FOR RECORDS PERTAINING TO PATIENTS WHO ARE OR HAVE BEEN ENROLLED IN A CHEMICAL DEPENDENCY/SUBSTANCEABUSE PROGRAM, SOME INFORMATION MAY BE OMITTED. This clinical summary was aggregated from multiple sources. Caution should be exercised in using it in the provision of clinical care. This summary normalizes information from multiple sources, and as a consequence, information in this document may materially change the coding, format and clinical context of patient data. In addition, data may be omitted in some cases. CLINICAL DECISIONS SHOULD BE BASED ON THE PRIMARY CLINICAL RECORDS. [employer] provides no warranty or guarantee of the accuracy or completeness of information in this document.
--- NOTE | 2023-03-30 12:22 | NEURO ---
NCS and/or EMG Patient Report Ordering Doctor: Kianna Sanchez DATE OF SERVICE: 03/30/23 Jojo presents for electrodiagnostic testing of the right upper limb. She reports pain in the right wrist and the dorsal aspect of the hand. Electrodiagnostic findings: Right median motor nerve demonstrates prolonged distal latency with normal amplitude and conduction velocity. Right ulnar motor response is within normal limits. Median sensory latency at the wrist. Normal ulnar and radial sensory responses. Needle EMG testing was performed to the right upper limb. All muscles tested showed no evidence of denervation with normal motor unit action potentials. Electrodiagnostic impression: This is an abnormal study in the right upper limb. 1. Electrodiagnostic findings suggestive of right-sided median mononeuropathy. This is consistent with a mild right carpal tunnel syndrome. Multi Select Codes Neurology Neurology Interp Codes: 56080-06 Musc test done w/n test comp (interp) and 79443-30 Nrv cndj tst 5-6 studies (interp)
== END | disposition home or self-care (01) ==
LOC: PSN 10:02
PROVIDERS: PCP Internal Medicine; Referring Provider Internal Medicine; Visit Provider Internal Medicine
DX: R29.898 Other symptoms and signs involving the musculoskeletal system (principal)
CPT/HCPCS: 95886; 95909

== ENCOUNTER → 2023-05-18 | Outpatient (CLI) | payer MEDICARE, MEDICAID, SELFPAY ==
[2023-05-18 16:06] LABS: Mucous, Urine 0 SEEN /hpf (<or=2+); Red Blood Cells-Urine 0 SEEN /hpf (0-5)
[2023-05-18 16:45] LABS: Color, Urine Yellow (Yellow); Glucose, Dipstick Normal (Normal); Ketone-Dipstick 5 mg/dl (Negative); Leukocyte Esterase-Dipstick 500 /ul (Negative); Nitrite-Dipstick Positive (Negative); Occult Blood-Urine 150 /ul (Negative); Protein-Dipstick 30 mg/dl (Negative); Urine Bilirubin Dipstick Negative (Negative); Urine Clarity Sl. Cloudy (Clear); Urine Urobilinogen 1 mg/dl (Normal)
[2023-05-18 17:00] LABS: White Blood Cells 5-10 SEEN /hpf (0-5)
[2023-05-18 17:01] LABS: Squamous Epithelial Cells - UA 0-5 SEEN /hpf (5-10)
[2023-05-18 17:02] LABS: Bacteria 1+ /hpf (None Seen); Calcium Oxalate Crystals Ur 3+ /hpf (<or=2+)
--- OUTSIDE RECORDS SUMMARY | 2023-05-18 19:44 | XMS RPT_ITS | CCD ---
Author Name Unknown Address [address] [place] [address] Organization [facility] Clinical Note 10-17-2020 Note Date & Type Note Facility 10-17-2020 Note Patient Outreach (IN TMMN) STAS OLIVEIRA ([id number]) 1950 F Date Time Provider Department 10/17/20 [...] for screening mammogram for breast cancer [Z12.31] Order(s):[facility] SCRE[facility] [[id number]] Order #: [id number] FUTURE Prescriptions as of 10/20/2020 - ibuprofen [...] 09/25/2015 Underweight [R63.6] 09/25/2015 Encounter Status:Closed by [employer], PRODUSER on 10/20/20 [facility] Summary Purpose Family History No Family History [...] BE BASED ON THE PRIMARY CLINICAL RECORDS. [employer] provides no warranty or guarantee of the accuracy or completeness of information in this document.
== END | disposition home or self-care (01) ==
LOC: LABSPEC 16:00
PROVIDERS: PCP Internal Medicine; Visit Provider Internal Medicine
DX: R30.0 Dysuria (principal)
CPT/HCPCS: 81001; 87077; 87086; 87088; 87186

== ENCOUNTER → 2023-08-31 | Outpatient (CLI) | payer MEDICARE, MEDICAID, SELFPAY ==
[2023-08-31 15:20] LABS: Absolute Lymphocyte Count 1.31 X10^3/uL (0.83-4.51); Absolute Neutrophil Count 2.1 X10^3/uL (2.0-7.7); Basophil# 0.04 X10^3/uL; Eosinophil# 0.11 X10^3/uL; Eosinophils% 2.7 % (0-5); Hematocrit 37.2 % (37-47); Hemoglobin 11.4 g/dL (12.0-15.0); Lymphocyte # 1.31 X10^3/ul (0.83-4.51); Lymphocyte % 32.7 % (19-41); Mean Corp Hgb Conc 30.6 g/dL (32-36); Mean Corpuscular Hgb 30.5 pg (27.0-32.0); Mean Corpuscular Volume 99.5 fL (81-99); Mean Platelet Vol. 11.1 fl (6.2-12.0); Monocyte# 0.48 X10^3/uL; NRBC Flagged by Analyzer 0 % (0-5); Neutrophil # 2.06 X10^3/uL (2.7-7.7); Neutrophil % 51.4 % (47-70); Platelet Count 290 K/mm3 (150-450); RBC Distribution Width SD 47.2 fl (35.1-43.9); Red Blood Count 3.74 M/mm3 (4.2-5.4)
[2023-08-31 15:40] LABS: Vitamin B12 620 pg/mL (211-911); Vitamin D,25 Hydroxy 46.9 ng/mL
[2023-08-31 15:51] LABS: AST(SGOT) 23 U/L (15-37); Alanine Aminotransfer ALT/SGPT 29 U/L (13-56); Albumin, Serum 3.7 g/dL (3.2-5.0); Alkaline Phosphatase 71 U/L (45-117); Anion Gap 6 (5-15); BUN 20 mg/dL (7-18); BUN/Creat Ratio 21.4 RATIO (10-20); Calcium,Total 10.2 mg/dL (8.5-10.1); Chloride 108 mmol/L (98-107); Cholesterol 159 mg/dL (200); Creatinine, Serum 0.93 mg/dL (0.55-1.02); EST Glomerular Filtration Rate 63 mL/min (>60); Est Glom Filt Rate - Afr Amer 76 mL/min (>60); Globulin 3.7 g/dL (2.2-4.2); Glucose 89 mg/dL (74-106); High Density Lipoprotein 75 mg/dL; Potassium 3.5 mmol/L (3.5-5.1); Protein, Total 7.4 g/dL (6.4-8.2); Sodium Level 140 mmol/L (136-145); Triglycerides 66 mg/dL; Very Low Density Lipoprotein 13 mg/dL (5-40)
== END | disposition home or self-care (01) ==
LOC: BIMLAB 11:59
PROVIDERS: PCP Internal Medicine; Referring Provider Internal Medicine; Visit Provider Internal Medicine
DX: M81.0 Age-related osteoporosis without current pathological fracture (principal); E78.2 Mixed hyperlipidemia; D05.10 Intraductal carcinoma in situ of unspecified breast; G56.01 Carpal tunnel syndrome, right upper limb
CPT/HCPCS: 36415; 80053; 80061; 82306; 82607; 85025

== ENCOUNTER → 2023-10-31 | Outpatient (CLI) | payer MEDICARE, MEDICAID, SELFPAY ==
--- NOTE | 2023-10-31 11:04 | BI_ITS ---
MAMMOGRAPHY - UNILATERAL SCREENING: RIGHT BREAST REASON FOR EXAM: Female, 73 years old. Routine annual screening examination (unilateral). PERTINENT HISTORY: Personal history of breast cancer. Prior left mastectomy and left breast implant reconstruction. TECHNIQUE: Digital unilateral breast kath (3D mammographic acquisition) in the CC and MLO projections. 2-D mediolateral oblique (MLO) and craniocaudad (CC) views of both breasts were obtained. CAD: Full Field Digital Mammography with Computer Added Detection was performed. COMPARISON: Comparison is made with prior mammogram dated October 28, 2022 and October 02, 2020. FINDINGS: Breast Composition: The breasts are extremely dense, which lowers the sensitivity of mammography. There are no dominant masses or suspicious calcifications. No other significant abnormalities are identified. There has been no significant change since the prior study. BI/SCREEN MAMM (CAD) W/KATH UNI R IMPRESSION: Stable unilateral screening mammogram. Yearly follow-up mammogram recommended. (A) ASSESSMENT CATEGORY: BIRADS Category 1: Negative. A letter regarding these results will be sent to the patient by the facility within 30 days. Approximately 10% of breast cancers are not detected by mammography. A normal mammogram should not delay biopsy of a clinically suspicious abnormality. [id number] Electronically Signed: Noel Stovall MD at 11:35 EDT ,
== END | disposition home or self-care (01) ==
LOC: OPBI 11:02
PROVIDERS: PCP Internal Medicine; Referring Provider Internal Medicine Hematology & Oncology; Visit Provider Internal Medicine Hematology & Oncology
DX: Z12.31 Encounter for screening mammogram for malignant neoplasm of breast (principal); Z85.3 Personal history of malignant neoplasm of breast; Z90.12 Acquired absence of left breast and nipple
CPT/HCPCS: 77063; 77067

== ENCOUNTER 2023-12-23 13:21 | Outpatient (CLI) | payer MEDICARE, MEDICAID, SELFPAY ==
[2023-12-23 13:56] VITALS: BP 145/90; PULSE 95; RESP 16; TEMP 36.7; O2SAT 98; BMI 14.8
[2023-12-23] MEDS: Zoledronic Acid 5 MG 100 ML 200 MG IV (14:23)
[2023-12-23 14:59] VITALS: BP 147/89; PULSE 79; RESP 16; TEMP 36.4; O2SAT 100
== END 2023-12-23 23:59 | disposition home or self-care (01) ==
LOC: MEDOUTP 13:22
PROVIDERS: PCP Internal Medicine; Referring Provider Physician Assistant; Visit Provider Physician Assistant
DX: M81.0 Age-related osteoporosis without current pathological fracture (principal)
CPT/HCPCS: 96365; A4216; J3489

== ENCOUNTER 2024-07-22 20:15 | Emergency (ER) | payer MEDICARE, MEDICAID, SELFPAY ==
[2024-07-22 20:16] VITALS: BP 160/121; PULSE 99; RESP 18; TEMP 36.1; O2SAT 100; BMI 13.3
--- NOTE | 2024-07-22 20:37 | EDS_ITS ---
HPI History of Present Illness Chief Complaint: Laceration Detail of Chief Complaint: Injury left index finger Informant: patient Onset/Context/Timing Onset: Today and Hours Mechanism/Context: Incised (Cut her finger using the matute electric jose) Location of pain/injuries: Left hand (Volar surface left index finger) Quality of Pain: Dull Location: Left index finger Current Severity: Gone Maximum Severity: Mild Worsened by: Initial injury Relieved by: Not applicable, Associated Symptoms Associated Symptoms: Negative for Parasthesias, Weakness or Loss of function Narrative Narrative: Patient 74-year-old vsypr-[id number] woman who presents with injury to her left index finger. She was trimming bushes with electric jose. Sustained mu ltiple laceration to volar surface of the left index finger over the middle and distal phalanx. She denies paresthesia, anesthesia medics. She denies deformity compared to her norm. She does have history of osteoporosis as well as arthritis. She is on no immunosuppressive meds. Prior similar symptoms: No Recent Illness/Hospitalization: No PFSH PFSH Medical History DCIS (ductal carcinoma in situ) Hyperlipidemia Seasonal allergies Osteoporosis Home Medications ?Medication ?Instructions ?Recorded ?Last Taken ?Type bone health 1 tab PO DAILY 10/02/19 Unkn own History food supplemt, lactose-reduced 1 ea PO DAILY 3 months #5,688 mL 10/26/19 Unknown Rx (Ensure High Protein oral liquid) black cohosh 540 mg capsule 20 mg (0.037 x 540 mg) PO DAILY 09/24/22 Unknown Rx Held on 12/23/23. #30 caps Instructions: pt does not have at this time arm brace (Wrist Brace) #1 ea 05/12/23 Unknown Rx handicap placard #1 ea 06/27/23 Unknown Rx denosumab 60 mg/mL subcutaneous 60 mg subcut [id number] #1 mL 08/31/23 Unknown Rx syringe (Prolia) ketoconazole 2 % topical cream 1 applic topical DAILY #60 grams 10/18/23 Unknown Rx lidocaine 5 % topical patch 1 patch topical DAILY #90 ea 10/18/23 Unknown Rx (Lidoderm) ibuprofen 400 mg tablet 400 mg PO BID PRN fever or p ain 02/27/24 Unknown Rx #180 tabs atorvastatin 10 mg tablet (Lipitor) 10 mg PO QHS #90 t abs 07/16/24 Unknown Rx donepezil 5 mg tablet 5 mg PO DAILY #30 tabs 07/16 Unknown Rx oxybutynin chloride 10 mg 10 mg PO DAILY #90 tabs 06/27 04/21 Unknown Rx tablet,extended release 24 hr clindamycin HCl 150 mg capsule 150 mg PO 4X/DAY #12 CA PSULES 07/22/24 Unknown Rx Allergy/AdvReac Type Severity Reaction Status Date / Time codeine Allergy Severe Hives Verified 07/16/24 15:13 Penicillins Allergy Severe Hives Verified 07/16/24 15:13 acetaminophen (From Vicodin) Allergy Intermediate Hives Verified 07/16/24 15:13 hydrocodone (From Vicodin) Allergy Intermediate Hives Verified 07/16/24 15:13 ibandronate sodium AdvReac Mild Diarrhea Verified 07/16/24 15:13 Family History Father Cancer liver Brother Cancer lung Mother Diabetes Hyperlipemia Kidney disease Thyroid disorder Surgical History History of left mastectomy History of breast reconstruction History of breast biopsy Social History household members: none housing: house current occupational status: retired 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 Smoking Status: Never smoker Electronic Cigarette Use: not used alcohol intake: never substance use type: does not use caffeine: Yes Type: coffee Number of servings: 1 what type of physical activity do you participate in: none do you feel safe at home: Yes additional social history: has a cat ROS ROS ED Integumentary Reports other Details: Lacerations left index finger Neurologic Neurologic: Denies paresthesias or weakness Hematologic/Lymphatic Hematologic/Lymphatic: Reports easy bruising EXAM Physical Exam Const Vital Signs: 07/22/24 20:16 Temperature 97 F L Temperature Source Temporal Pulse Rate 99 Respiratory Rate 18 Blood Pressure 160/121 H Blood Pressure Mean 134 Pulse Ox 100 Oxygen Delivery Method Room Air Positive well nourished and well developed General Appearance ED: well developed and NAD HEENT HEENT Narrative: Normocephalic. atraumatic Eyes PERRL and EOMs intact bilaterally Resp normal respiratory effort Cardio regular rhythm Rate: regular rate Extremity Negative for normal to inspection Extremity Narrative: Patient is deformity of the DIP joint. This does not appear to be significantly different compared to the uninjured index finger on the right. There may be laxity of the collateral ligaments. The extensor indices tendon is functionally intact. The flexor digitorum superficialis and flexor digitorum profundus are intact. Patient is to point discrimination is abnormal however her 2 point summation is abnormal every finger. Try to establish a norm for her. She still answers incorrectly 50% at times regardless of whether I am testing the injured finger or the uninjured finger. Capillary refill is normal. Unable to assess for subungual hematoma since she has acrylic nails on. Neuro oriented x3, CN's II-XII intact bilaterally and no focal motor deficits Ila Coma Scale: document GCS findings Spontaneous Obeys Commands Oriented 15 Psych mental status grossly normal and thought process normal Skin Skin Narrative: Previously described PROC Procedures Other Procedures Procedure(s): Suture repair: 1. Most distal laceration is linear and 7 mm in length 2. Laceration is curvilinear and 1.7 cm in length 3. Third laceration is stellate and total open area is 2.2 cm in length Wound was irrigated after the digit was anesthetized with 1% lidocaine. A total of 4 cc was infused. 12 stitches were placed. The wound was explored. Was able to see the flexor tendon. It did not appear to be lacerated. MDM MDM MDM Narrative Medical decision making narrative: Because of the laxity of the DIP joint will obtain x-ray to assess for fracture as well as foreign body. Order was placed to have ring removed. Will then anesthetize digit and repair. Will await results of x-ray. Radiography Chest X-Ray - ED: Read by ED Physician (Three-view x-ray of the finger reveals no acute process. There is no evidence of fracture, subluxation dislocation or foreign body.) Diagnostic Testing: Clinical Impression(s) from Imaging Studies Finger X-Ray 07/22/24 20:45 IMPRESSION: DEGENERATIVE OSTEOARTHROSIS. NO ACUTE FINDINGS. Reading Location: [id number] Treatment and Re-Evaluation Narrative: Because there is an area where there is a defect she was referred to Dr. Meliton Riddle plastic/hand for follow-up. Discharge Plan Triage Chief Complaint: Laceration ED Provider: Bryson Sinha Dx/Rx/DC Orders Clinical Impression: Laceration of left index finger, Elevated blood pressure reading with diagnosis of hypertension, Hx of hypercholesterolemia Instructions: ED Laceration, Hand: All Closures Prescriptions: New clindamycin HCl 150 mg capsule 150 mg PO 4X/DAY Qty: 12 0RF No Action bone health 1 tab PO DAILY Prolia 60 mg/mL syringe 60 mg subcut [id number] Qty: 1 2RF oxybutynin chloride 10 mg tablet extended release 24hr 10 mg PO DAILY Qty: 90 1RF atorvastatin [Lipitor] 10 mg tablet 10 mg PO QHS Qty: 90 1RF donepezil 5 mg tablet 5 mg PO DAILY Qty: 30 1RF Ensure High Protein Liquid 1 ea PO DAILY 90 Days Qty: 5688 3RF black cohosh 540 mg capsule 20 mg PO DAILY Qty: 30 0RF (DME) Wrist Brace Misc See Rx Instructions .Route Qty: 1 0RF Rx Instructions: As directed (DME) handicap placard See Rx Instructions .ROUTE .MEDSUPPLY Qty: 1 0RF Rx Instructions: Length of time: 3 years Diagnosis: Impaired physical mobility (z74.09) ketoconazole 2 % cream 1 applic TOPICAL DAILY Qty: 60 1RF lidocaine [Lidoderm] 5 % adhesive patch,medicated 1 patch TOPICAL DAILY Qty: 90 1RF Rx Instructions: leave on most painful area for up to 12 hrs ibuprofen 400 mg tablet 400 mg PO BID PRN (Reason: fever or pain) Qty: 180 0RF Primary Care Provider: Kianna Sanchez Referrals: Kianna Sanchez MD [Primary Care Provider] - Meliton Riddle MD [Med Staff - Active Staff] - 1 Day for another exam Print Language: Moldovan Disposition Disposition: Home, Self Care
--- NOTE | 2024-07-22 20:45 | RAD_ITS ---
PROCEDURE: FINGER(S) MIN 2 VIEWS 07/22/2024 REASON FOR EXAM: INJURY/PAIN TECHNIQUE: 3 view(s) of the left 2nd digit FINDINGS: Bones: No acute fracture. Joints: Severe joint space narrowing and osteophyte formation of the distal interphalangeal joint consistent with severe osteoarthritis. Soft tissues: Soft tissues are unremarkable. Other: RAD/Finger(s) Min 2 Views IMPRESSION: DEGENERATIVE OSTEOARTHROSIS. NO ACUTE FINDINGS. Reading Location: [id number]
[2024-07-22] MEDS: Lidocaine 1% (20 ml mdv) 20 ML Vial INFILT (20:50)
[2024-07-22 21:56] VITALS: BP 128/75; PULSE 78; RESP 18; TEMP 36.6; O2SAT 99
== END 2024-07-22 21:57 | disposition home or self-care (01) ==
PROVIDERS: Emergency Provider Emergency Medicine; PCP Internal Medicine; Referring Provider Emergency Medicine; Visit Provider Emergency Medicine
DX: S61.211A Laceration without foreign body of left index finger without damage to nail, initial encounter (principal); W29.3XXA Contact with powered garden and outdoor hand tools and machinery, initial encounter; R03.0 Elevated blood-pressure reading, without diagnosis of hypertension; E78.00 Pure hypercholesterolemia, unspecified; M19.90 Unspecified osteoarthritis, unspecified site; Z79.899 Other long term (current) drug therapy
CPT/HCPCS: 12002; 73140; 99283

== ENCOUNTER 2024-08-29 16:00 | Outpatient (RCR) | payer MEDICARE, MEDICAID, SELFPAY ==
--- NOTE | 2024-08-21 15:26 | HP.OTEVAL_ITS ---
Patient's Visit Information Visit Information Visit Information: STAS OLIVEIRA is a 74 year old F, referred to Occupational Therapy by Dr. Meliton Riddle MD, with a diagnosis of left IF laceration. Date of Evaluation: 08/21/24 Occupational Therapist: Halina Hagan, OTR/Boni, CHT Subjective Subjective: This 74 year old female was seen for OT eval with dx of left IF laceration. pt states while using hedge trimmers she cut her left finger. Pts [facility] did take her to ER where she had stitches. Pt has been followed closely by Dr. Riddle. On August 07 pt was referred to improve pts ROM and use of left hand. pt arrives today 2 weeks following referral demo with limited ROM reports of stiffness and sensitivity. pt admits she is not using her left hand with daily tasks. pt would like to return to using her left hand at her PLOF. Pain left IF: Current Pain Intensity: 2 Pain Intensity Range: 0 and 2 ROM PIP: left IF 80 DIP: left IF 35 ROM Comments: pt demo with limited ROM of left IF following left IF laceration with stitches. Strength Strength Comments: not tested Sensation Sensation Comments: denies Quick DASH-Disab of Arm,Shoulder& Hand Quick DASH Score: 22.5000 Goals Goal:Daily scar massage when approriate: Yes Goal:ROM equal to unaffected hand: Yes Goal:No pain with affected hand use: Yes Goal:Full use of affected hand in daily activities including work: Yes Rehabilitation General Assessment: pt arrives 6 weeks from DOI demo with limited left IF ROM and fearfullness of using left hand with composite fist for ADls and IADls. pt would benefit from 2-3 visits to ensure pt has returned to using her left hand with all ADLs. Today therapist ed. pt on tendon glide ex, scar massage and return to use of left hand with all tasks. pt and pts son. demo understanding and agree to POC. Rehabilitation Potential: Good Anticipated Interventions Anticipated Interventions: A/AAROM/PROM, Scar Care, Triggerpoint Release, Sensory Retraining, Modalities, Education re assistive Equipment, Education re Diagnosis and Home Program Visit Plan Frequency: 1x/Week Duration: 2-4 Weeks TEXT: Thank you for the opportunity to evaluate your patient. For Medicare and Medicare HMO plans, please review the plan of care and approve it. It will need to be FAXED BACK to us at [phone] for Medicare purposes. Please let me know if there are questions or concerns regarding this plan of care. Physician Signature: Date:
--- NOTE | 2024-08-30 11:09 | HP.OTDCSUM_ITS ---
Discharge Summary D/C Summary: It has been my pleasure to treat STAS OLIVEIRA under orders from Dr. Meliton Riddle MD, for the diagnosis of left IF laceration for a total of 2 visit(s). Please see the following information for a summary of their discharge status. Overall Improvement % Improvement: 80 Objective Objective/Function: left IF PIP 90* left DIP 40* Goals Patient Goals: Regain Mobility and Use Hand/Wrist/Arm Normally Again Goal:Daily scar massage when approriate: Yes Goal Progress: Goal Met Goal:ROM equal to unaffected hand: Yes Goal:No pain with affected hand use: Yes Goal Progress: Goal Met Goal:Full use of affected hand in daily activities including work: Yes Plan Plan: D/C D/C Information Discharge Comments: pt was seen for 2 OT sessions- ed. on desensitization and demo full ROM. pt still reluctant at times to use IF with daily tasks but with cues and frequency her and her son feel she is ok for d/c d/c sentence: If there are questions or concerns regarding this patient's occupational therapy, please fell free to call me at [phone]. Thank you for the ref erral of this patient. Sincerely, Halina Hagan, OTR/L, CHT
== END 2024-08-29 19:00 | disposition home or self-care (01) ==
LOC: OT 16:00
PROVIDERS: PCP Internal Medicine; Referring Provider Surgery Plastic and Reconstructive Surgery; Visit Provider Surgery Plastic and Reconstructive Surgery
DX: S61.211D Laceration without foreign body of left index finger without damage to nail, subsequent encounter (principal)
CPT/HCPCS: 97166; 97530

== ENCOUNTER → 2024-10-15 | Outpatient (CLI) | payer MEDICARE, MEDICAID, SELFPAY ==
[2024-10-15 17:07] LABS: Hematocrit 38.0 % (37-47); Hemoglobin 11.8 g/dL (12.0-15.0); Immature Granulocytes Count 0.010 X10^3/uL (0.0-0.0); Mean Corp Hgb Conc 31.1 g/dL (32-36); Mean Corpuscular Volume 98.7 fL (81-99); Mean Platelet Vol. 11.4 fl (6.2-12.0); NRBC Flagged by Analyzer 0 % (0-5); Platelet Count 322 K/mm3 (150-450); RBC Distribution Width CV 15.0 % (11.6-14.6); RBC Distribution Width SD 54.5 fl (35.1-43.9); Red Blood Count 3.85 M/mm3 (4.2-5.4); White Blood Count 5.3 K/mm3 (4.4-11.0)
[2024-10-15 17:31] LABS: AST(SGOT) 26 U/L (<=31); Alanine Aminotransfer ALT/SGPT 23 U/L (<=34); Albumin, Serum 4.5 g/dL (3.4-4.8); Alkaline Phosphatase 74 U/L (35-104); Anion Gap 11 (5-15); BUN 12 mg/dL (4-19); BUN/Creat Ratio 14.6 RATIO (10-20); Calcium,Total 10.0 mg/dL (7.6-11.0); Carbon Dioxide 24.0 mmol/L (21.0-32.0); Chloride 104 mmol/L (98-108); Globulin 3.2 g/dL (2.2-4.2); Glucose 96 mg/dL (70-99); Potassium 3.8 mmol/L (3.3-5.1)
[2024-10-15 18:03] LABS: Cholesterol 171 mg/dL (<=200); Low Density Lipoprotein Calc. 66 mg/dL; Triglycerides 48 mg/dL; Very Low Density Lipoprotein 10 mg/dL (5-40); cholesterol:hdl ratio screen 1.79
[2024-10-15 18:05] LABS: Vitamin D,25 Hydroxy 48.2 ng/mL (30-100)
== END | disposition home or self-care (01) ==
LOC: BIMLAB 15:09
PROVIDERS: PCP Internal Medicine; Referring Provider Internal Medicine; Visit Provider Internal Medicine
DX: E78.2 Mixed hyperlipidemia (principal); M81.0 Age-related osteoporosis without current pathological fracture
CPT/HCPCS: 36415; 80053; 80061; 82306; 85025

== ENCOUNTER → 2024-10-31 | Outpatient (CLI) | payer MEDICARE, MEDICAID, SELFPAY ==
--- NOTE | 2024-10-31 10:30 | BI_ITS ---
EXAM: SCREEN MAMM (CAD) W/KATH UNI R DATE: 10/31/2024 CLINICAL HISTORY: F, Age 74 y/o , SCREENING TECHNIQUE: SCREEN MAMM (CAD) W/KATH UNI R COMPARISON: Prior exam(s) dated 10/31/2023, 10/28/2022, 10/02/2020. FINDINGS: TISSUE DENSITY: The breasts are extremely dense, which lowers the sensitivity of mammography. The mammogram demonstrates that the patient has dense breasts. Supplemental screening with whole breast ultrasound or MRI may be considered for further evaluation. Unilateral Right Breast Mammographic Findings: No significant masses, calcifications or other abnormalities are identified. BI/SCREEN MAMM (CAD) W/KATH UNI R IMPRESSION: There is no mammographic evidence of malignancy. OVERALL FINAL ASSESSMENT BI-RADS 1: NEGATIVE. RECOMMENDATION: Routine annual follow-up in 1 Year A letter with findings and recommendations will be mailed to the patient. Reading Location: [id number]
== END | disposition home or self-care (01) ==
LOC: OPBI 10:39
PROVIDERS: PCP Internal Medicine; Referring Provider Nurse Practitioner Family; Visit Provider Nurse Practitioner Family
DX: Z12.31 Encounter for screening mammogram for malignant neoplasm of breast (principal)
CPT/HCPCS: 77063; 77067

== ENCOUNTER 2025-02-27 15:00 | Outpatient (RCR) | payer MEDICARE, MEDICAID, SELFPAY ==
--- NOTE | 2025-01-02 09:17 | HP.PTEVAL_ITS ---
Patient's Visit Information Visit Information Visit Information: STAS OLIVEIRA is a 74 year old F referred to Physical Therapy by Dr. El Zheng DO with a diagnosis of gait abnormality, imbalance. Date of Evaluation: 12/31/24 Physical Therapist: Stanislaw Holman DPT Visit Plan Frequency: 3x /Week Duration: 4 Weeks Plan: dynamic balance training, develop LE strengthening program in gym as pa tient plans to go to local gym after done with PT. Subjective Subjective: Pt. is here today for her initial evaluation with diagnosis of balance issues and gait abnormality. Pt. reports no pain, no falls, but feels like her balance has been progressively worsening. Pt. reports getting out with sister. She does not drive now, but does everything at home by her self. No dizziness, no falls noted. Pt. reports not feeling weak, but has some imbalance at times. She reports just feeling a little off balance with walking. Pt. is hopeful to start going to gym, but physician would like her to start with more instruction and balance training. Pt. agrees. Objective Objective: POSTURE: Pt. has fairly normal posture in stance. PALPATION: No issues noted. NEURO: No N/t noted. ROM: Pt. is very flexible throughout BLEs. MMT: R knee: ext 21.9#, flex 25.4#; hip flex 18.6#,abd 25# L knee: ext 27.1#, flex 21.5#; hip: flexion 24.8#, abd 24.3# GAIT: pt. has some slight lateral sway. No antalgic pattern noted. STAIRS: Pt. was able to complete with 1 HR with reciprocal pattern. Pt. did have a tendency to lean back with sit to stand testing an rely on chair to help with stability. Balance/Special Test Scores Functional Gait Assessment Score: 20 % Disability: 33.3400 Lower Extremity Functional Score: 56 TUG Test Time Seconds: 7.77 30 Second Chair Rise Test Seconds: 15 Goals Goal 1:: LTG: Pt. to be I with program for gym as patient plans on going to local gym for strengthening. Goal Time Frame: 4-6 Weeks Goal 2:: LTG: Pt. to have improved FGA to 25/30 indicating improved stability with gait/stance. Goal Time Frame: 4-6 Weeks Goal 3:: LTG: Pt. to negotiate stairs with good control with 1 HR with reciprocal pattern. Goal Time Frame: 4-6 Weeks Goal 4:: LTG: Pt. to ambulate 350' with normal gait pattern without veering from path. Goal Time Frame: 4-6 Weeks Rehabilitation Potential Physical Therapy Diagnosis: Pt. has signs and symptoms consistent with gait abnormality and imbalance. She has has the most difficulty with narrow HIEN, eyes closed and sinlge leg balance. Pt. would benefit from PT to address the above limitations progressing to I programs with gym and home. Rehabilitation Potential: Excellent Anticipated Interventions Patient/Client Instruction: Educate patient on: Condition, Plan of Care, Risk Factors and Benefits of Fitness Program For the Purpose of:: To foster healthy habits, To improve decision making, To facilitate caregiver knowledge, To improve self management, To prevent re-injury and To improve ability to perform tasks related to life management Therapeutic Exercise to Include: Strength training, Power training, Balance training, Body mechanics, Postural training and Gait and locomotor training For the Purpose of:: To improve muscle performance and motor function, To decrease level of supervision to perform tasks, To improve ability of physical actions for home/community/work/leisure, To improve health of tissue and To improve balance Text: Thank you for the opportunity to evaluate your patient. For Medicare and Medicare HMO plans, please review the plan of care and approve it. It will need to be FAXED BACK to us at [phone] for Medicare purposes. For Medicare only, by signing this I certify the plan of care. Please let me know if there are questions or concerns regarding this plan of care. Physician Signature: Date:
--- NOTE | 2025-02-27 15:27 | HP.PTDCSUM ---
Discharge Summary D/C summary: It has been my pleasure to treat STAS OLIVEIRA referred by Dr. El Zheng DO, with the diagnosis of gait abnormality, imbalance for a total of 17 visit(s). Discharge Date: 02/27/25 Please see the following information for a summary of their discharge status. Subjective Subjective: Pt. reports overall doing well. No issues. Pt. reports no falls. Pt. reports being I with HEP and knows her exercises for the gym. Pain R Hip: Pain Intensity (Out of 10): 0 Overall Improvement % Improvement: 80 Objective Objective/Function: MMT: 5/5 throughout. Pt. no pain with all testing 30sec sit to stand test: 17 without use of UEs Goals Goal 1:: LTG: Pt. to be I with program for gym as patient plans on going to local gym for strengthening. Goal Progress: Goal Met Goal 2:: LTG: Pt. to have improved FGA to 25/30 indicating improved stability with gait/stance. Goal Progress: Goal Met Goal 3:: LTG: Pt. to negotiate stairs with good control with 1 HR with reciprocal pattern. Goal Progress: Goal Met Goal 4:: LTG: Pt. to ambulate 350' with normal gait pattern without veering from path. Goal Progress: Goal Met Plan Plan: Pt. is currently I with gym exercises. I gave her a print out of exercises to complete. Pt. plans to complete on own 2-3 per well. Pt. will be DC from PT at this point in time. D/C Information d/c sentence: If there are questions or concerns regarding this patient's physical therapy, please feel free to call me at [phone]. Thank you for the referral of this patient. Sincerely, Stanislaw Plata Sipos, DPT Balance/Gait/Functional tests Balance/Special Test Scores Functional Gait Assessment Score: 29 % Disability: 3.3400 Lower Extremity Functional Score: 64 TUG Test Time Seconds: 7.9 Tug Test: <10 sec.=free mobile 30 Second Chair Rise Test Seconds: 17 Improvement % Improvement: 80
== END 2025-02-27 19:00 | disposition home or self-care (01) ==
LOC: PT 15:00
PROVIDERS: PCP Family Medicine; Visit Provider Family Medicine
DX: R26.89 Other abnormalities of gait and mobility (principal)
CPT/HCPCS: 97110; 97161; 97530